=== PATIENT | female | born 1975 | race Two or more races ===

== ENCOUNTER 2024-05-27 10:46 | Emergency (ER) | payer MEDICAID ==
[~2024-05-27] VITALS: Ht 157.5 cm; Wt 80.0 kg
[2024-05-27] MEDS: cloNIDine HCL 0.1 MG TAB PO ONE ×2 (14:07→14:57)
[2024-05-27 15:52] VITALS: BP 186/106; TEMP 97.7
[2024-05-27 15:55] VITALS: PULSE 77; RESP 20; O2SAT 97
== END 2024-05-27 16:19 | disposition home or self-care (01) ==
LOC: ER 11:00
DX: I16.0 Hypertensive urgency (principal)